=== PATIENT | male | born 2000 | race Asian ===

== ENCOUNTER 2024-06-09 01:20 | Emergency (ER) | payer BC, SELFPAY ==
[2024-06-09] MEDS ORDERED: diphenhydrAMINE 50 MG/ML VIAL ONE (02:01)
[2024-06-09] MEDS ORDERED: methylPREDNISolone Sod Succ/PF 125 MG/2 ML VIAL ONE (02:01)
== END 2024-06-09 05:57 | disposition home or self-care (01) ==
LOC: ERS 01:20
DX: T78.40XA Allergy, unspecified, initial encounter (principal); I95.9 Hypotension, unspecified
CPT/HCPCS: 96374; 96375; J1200; J2919